=== PATIENT | male | born 1945 | race Two or more races ===

== ENCOUNTER 2018-08-18 09:56 | Day surgery (SDC) | payer OTHER ==
[~2018-08-18 09:56] MED LIST: ALLUPURINOL PO; ATORVASTATIN PO; CARDURA XL4 MG PO; IBERSARTAN PO; JANUMET XR 1001 EACH PO; NEURONTIN800 MG PO
[2018-08-19] MEDS ORDERED: ATORVASTATIN CA40 MG PO (06:13)
[2018-08-19] MEDS ORDERED: IRBESARTAN300 MG PO (06:15)
[2018-08-19] MEDS ORDERED: ALLOPURINOL300 MG PO (06:18)
[2018-08-19] MEDS ORDERED: TRAMADOL HCL50 MG PO (12:45)
[2018-08-19] MEDS ORDERED: NEURONTIN300 MG PO (12:45)
[2018-08-19] MEDS ORDERED: MIRALAX17 GM PO (12:45)
[2018-08-19] MEDS ORDERED: TYLENOL EXTRA500 MG PO (12:45)
== END 2018-08-19 10:35 | disposition home or self-care (01) ==
LOC: CIR.AMB 09:56 → O/R 19:53 → SURH 19:53 → O/R 20:04 → SURH 20:04 → CIR.AMB 08-19 10:35 → SURH 08-19 14:58
DX: K40.90 Unilateral inguinal hernia, without obstruction or gangrene, not specified as recurrent (principal); K42.0 Umbilical hernia with obstruction, without gangrene